=== PATIENT | male | born 1980 | race Two or more races ===

== ENCOUNTER 2023-01-07 02:58 | Emergency (ER) | payer OTHER ==
[~2023-01-07] VITALS: Ht 172.7 cm; Wt 79.4 kg
[2023-01-07] MEDS ORDERED: ACETAMINOPHEN ES 500 MG TABLET ONE ×2 (03:28→03:34)
[2023-01-07] MEDS ORDERED: ACETAMINOPHEN 325 MG TABLET PO ONE (03:30)
[2023-01-07] MEDS ORDERED: TYL2T PO (04:19)
[2023-01-07] MEDS ORDERED: IBUP-1953 PO (04:19)
[2023-01-07 04:29] VITALS: BP 129/78; TEMP 98.1; O2SAT 99
== END 2023-01-07 04:30 ==
LOC: ER 03:00
DX: S00.12XA Contusion of left eyelid and periocular area, initial encounter (principal); F17.200 Nicotine dependence, unspecified, uncomplicated; Z79.899 Other long term (current) drug therapy; Y04.8XXA Assault by other bodily force, initial encounter; Y93.89 Activity, other specified; Y92.89 Other specified places as the place of occurrence of the external cause; Y99.8 Other external cause status
CPT/HCPCS: 70486-TC